=== PATIENT | female | born 1970 | race Caucasian/White ===

== ENCOUNTER 2017-11-22 05:58 | Day surgery (SDC) | payer OTHER ==
[~2017-11-22 05:58] MED LIST: CATAFLAM50 MG PO; ZITHROMAX TRI-500 MG PO
[2017-11-22] MEDS ORDERED: PERCOCET 5-3251 EACH PO (11:44)
[2017-11-22] MEDS ORDERED: 8HR ARTHRITIS650 MG PO (11:44)
[2017-11-22] MEDS ORDERED: METHYLERGO0.2 MG/1 M PO (11:44)
== END 2017-11-22 13:40 | disposition home or self-care (01) ==
LOC: CIR.AMB 05:58
DX: D25.0 Submucous leiomyoma of uterus (principal); N92.1 Excessive and frequent menstruation with irregular cycle

== ENCOUNTER 2021-07-11 11:00 | Inpatient (IN) | payer OTHER ==
[~2021-07-11] VITALS: Ht 160 cm; Wt 6.4 kg
[~2021-07-11 11:00] MED LIST changes: -COLACE100 MG PO; -FOLIC ACID1 MG; -MAXIMUM D3325 MCG; -MELOXICAM15 MG; -OMEPRAZOLE20 MG; -TAMSULOSIN HCL0.4 MG; -ULTRACET PO; -XELJANZ XR11 MG
[2021-07-14] MEDS ORDERED: XELJANZ XR11 MG (08:41)
[2021-07-14] MEDS ORDERED: FOLIC ACID1 MG (08:42)
[2021-07-14] MEDS ORDERED: OMEPRAZOLE20 MG (08:42)
[2021-07-14] MEDS ORDERED: MELOXICAM15 MG (08:42)
[2021-07-14] MEDS ORDERED: MAXIMUM D3325 MCG (08:42)
[2021-07-14] MEDS ORDERED: TAMSULOSIN HCL0.4 MG (08:42)
[2021-07-15] MEDS ORDERED: ULTRACET PO (11:51)
[2021-07-15] MEDS ORDERED: COLACE100 MG PO (11:52)
== END 2021-07-15 12:41 | disposition home or self-care (01) | DRG 743 ==
LOC: O/R 07-14 05:55 → SURH 07-14 10:00 → OB/GYN 07-14 13:57
PROVIDERS: ADMIT Obstetrics & Gynecology; ATTEND Obstetrics & Gynecology
PROC: 0UT7FZZ Resection of Bilateral Fallopian Tubes, Via Natural or Artificial Opening With Percutaneous Endoscopic Assistance (ICD-10-PCS; 2021-07-14)
PROC: 0UT0FZZ Resection of Right Ovary, Via Natural or Artificial Opening With Percutaneous Endoscopic Assistance (ICD-10-PCS; 2021-07-14)
PROC: 0USG8ZZ Reposition Vagina, Via Natural or Artificial Opening Endoscopic (ICD-10-PCS; 2021-07-14)
PROC: 0UT9FZZ Resection of Uterus, Via Natural or Artificial Opening With Percutaneous Endoscopic Assistance (ICD-10-PCS; principal; 2021-07-14 10:00)
DX: D25.0 Submucous leiomyoma of uterus (principal); D27.0 Benign neoplasm of right ovary; N72 Inflammatory disease of cervix uteri; N80.0 Endometriosis of uterus; N83.8 Other noninflammatory disorders of ovary, fallopian tube and broad ligament; N83.11 Corpus luteum cyst of right ovary; N99.4 Postprocedural pelvic peritoneal adhesions; N73.6 Female pelvic peritoneal adhesions (postinfective); N92.3 Ovulation bleeding; N91.4 Secondary oligomenorrhea; D25.1 Intramural leiomyoma of uterus

== ENCOUNTER → 2021-07-11 | Outpatient (CLI) | payer OTHER ==
[~2021-07-11] MED LIST changes: +8HR ARTHRITIS650 MG PO; +COLACE100 MG PO; +FOLIC ACID1 MG; +MAXIMUM D3325 MCG; +MELOXICAM15 MG; +METHYLERGO0.2 MG/1 M PO; +OMEPRAZOLE20 MG; +PERCOCET 5-3251 EACH PO; +TAMSULOSIN HCL0.4 MG; +ULTRACET PO; +XELJANZ XR11 MG
== END | disposition home or self-care (01) ==
LOC: RAD 10:13
PROVIDERS: ATTEND Obstetrics & Gynecology
DX: K80.80 Other cholelithiasis without obstruction (principal); N92.3 Ovulation bleeding; N91.4 Secondary oligomenorrhea; N83.299 Other ovarian cyst, unspecified side; D25.1 Intramural leiomyoma of uterus; D25.0 Submucous leiomyoma of uterus; D26.1 Other benign neoplasm of corpus uteri; M05.759 Rheumatoid arthritis with rheumatoid factor of unspecified hip without organ or systems involvement; R10.813 Right lower quadrant abdominal tenderness